=== PATIENT | male | born 1985 | race Caucasian/White ===

== ENCOUNTER 2017-08-16 10:40 | Emergency (ER) | payer SELFPAY ==
[~2017-08-16] VITALS: Ht 180.3 cm; Wt 58.6 kg
[2017-08-16] MEDS ORDERED: ALBUTEROL SULFATE 2.5 MG/3 ML NPPB ONE (11:00)
[2017-08-16] MEDS ORDERED: ALBUTEROL/IPRATROPIUM 2.5MG/0.5MG, 3 ML ONE (11:18)
[2017-08-16] MEDS ORDERED: ALBUTEROL SULFATE 2.5 MG/3 ML ONE (11:24)
[2017-08-16] MEDS ORDERED: SODIUM CHLORIDE FLUSH 10ML SYR IVF ONE (12:30)
[2017-08-16] MEDS ORDERED: CEFTRIAXONE PMX 1GM/50ML 50 ML IVPB ONE (12:30)
[2017-08-16] MEDS ORDERED: AZITHROMYCIN 500 MG in SODIUM CHLORIDE 0.9% 250 ML IVPB ONE (12:30)
[2017-08-16 12:52] LABS: BASOPHILS # (AUTO) 0.03 x10^3/uL (0-0.1); BASOPHILS % (AUTO) 1 % (0-1); EOSINOPHILS # (AUTO) 0.09 x10^3/uL (0-0.4); EOSINOPHILS % (AUTO) 2 % (1-7); LYMPHOCYTES # (AUTO) 1.84 x10^3/uL (1-3.4); LYMPHOCYTES % (AUTO) 34 % (22-44); MD NO; MEAN CORPUSCULAR HEMOGLOBIN 29.6 pg (27.5-34.5); MEAN CORPUSCULAR HGB CONC 33.1 g/dL (33.2-36.2); MEAN CORPUSCULAR VOLUME 89.4 fL (81-97); MEAN PLATELET VOLUME 9.1 fL (7.4-10.4); MONOCYTES % (AUTO) 6 % (2-9); NEUTROPHILS # (AUTO) 3.22 x10^3/uL (1.8-6.8); NEUTROPHILS % (AUTO) 59 % (42-75); PLATELET COUNT 317 x10^3/uL (130-400); RED BLOOD COUNT 4.85 x10^6/uL (4.38-5.82); RED CELL DISTRIBUTION WIDTH 12.7 % (9.4-14.8)
[2017-08-16 13:01] LABS: ALBUMIN 3.9 g/dL (3.4-5.0); ANION GAP 8 mmol/L (5-15); CALCIUM 8.7 mg/dL (8.5-10.1); CHLORIDE 107 mmol/L (98-107); CREATININE 0.96 mg/dL (0.7-1.3)
[2017-08-16] MEDS ORDERED: CEFTRIAXONE PMX 1GM/50ML 50 ML ONE (13:18)
[2017-08-16] MEDS ORDERED: OMNIPAQUE 350 MG/ML, 75ML BOTTLE ONE (13:37)
[2017-08-16 14:45] VITALS: BP 108/65
== END 2017-08-16 14:48 | disposition home or self-care (01) ==
LOC: ED 11:27
DX: J45.41 Moderate persistent asthma with (acute) exacerbation (principal); J00 Acute nasopharyngitis [common cold]; Z76.0 Encounter for issue of repeat prescription; R06.00 Dyspnea, unspecified
CPT/HCPCS: 36415; 71046; 71260; 80048; 82040; 83605; 85025; 87040; 93005; 94640; 96365; 99285; J0696; Q9967; J7613

== ENCOUNTER 2018-11-29 21:45 | Emergency (ER) | payer MEDICAID ==
[~2018-11-29] VITALS: Ht 180.3 cm; Wt 62.7 kg
--- NOTE | 2018-11-29 21:59 | NUR ---
C/O LOWER ABD PAIN RADIATING TO BILATERAL FLANKS. HX KIDNEY STONES. DX 3MM STONE AT [facility] TWO DAYS AGO. PT STATES PAIN MEDS ARE NOT WORKING TO CONTROL PAIN. CONNECTED TO MONITORING. CALL LIGHT IN REACH. FAMILY AT BEDSIDE. AWAITING ORDERS.
[2018-11-29] MEDS ORDERED: SODIUM CHLORIDE 0.9% 1,000ML IV ONE (22:30)
[2018-11-29] MEDS ORDERED: KETOROLAC 30 MG/1 ML IVPush ONE (22:30)
[2018-11-29] MEDS ORDERED: ONDANSETRON 2MG/ML, 2ML IVPush ONE (22:30)
[2018-11-29] MEDS ORDERED: MORPHINE SULFATE 4 MG/ML, 1ML IVPush PRN (22:30)
--- NOTE | 2018-11-29 22:30 | NUR ---
IV PLACED AND MEDS ADMINISTERED ORDERED.
[2018-11-29 22:42] LABS: BASOPHILS # (AUTO) 0.01 x10^3/uL (0-0.1); BASOPHILS % (AUTO) 0 % (0-1); EOSINOPHILS # (AUTO) 0.09 x10^3/uL (0-0.4); EOSINOPHILS % (AUTO) 1 % (1-7); LYMPHOCYTES # (AUTO) 1.47 x10^3/uL (1-3.4); LYMPHOCYTES % (AUTO) 19 % (22-44); MD NO; MEAN CORPUSCULAR HEMOGLOBIN 30.4 pg (27.5-34.5); MEAN CORPUSCULAR HGB CONC 33.2 g/dL (33.2-36.2); MEAN CORPUSCULAR VOLUME 91.6 fL (81-97); MEAN PLATELET VOLUME 9.3 fL (7.4-10.4); MONOCYTES # (AUTO) 0.32 x10^3/uL (0.2-0.8); MONOCYTES % (AUTO) 4 % (2-9); NEUTROPHILS # (AUTO) 6.03 x10^3/uL (1.8-6.8); NEUTROPHILS % (AUTO) 76 % (42-75); PLATELET COUNT 266 x10^3/uL (130-400); RED BLOOD COUNT 4.58 x10^6/uL (4.38-5.82)
[2018-11-29 22:49] LABS: ALBUMIN 3.6 g/dL (3.4-5.0); ANION GAP 8 mmol/L (5-15); CHLORIDE 107 mmol/L (98-107); CREATININE 1.67 mg/dL (0.7-1.3)
[2018-11-29] MEDS ORDERED: KETOROLAC 30 MG/1 ML ONE (22:52)
[2018-11-29] MEDS ORDERED: MORPHINE SULFATE 4 MG/ML, 1ML ONE (22:52)
[2018-11-29] MEDS ORDERED: ONDANSETRON 2MG/ML, 2ML ONE (22:52)
--- NOTE | 2018-11-29 23:20 | NUR ---
IV INFILTRATED. NEW IV PLACED FLUIDS RUNNING ORDERED.
[2018-11-29 23:24] LABS: MICROSCOPIC NOT IND
[2018-11-29 23:36] LABS: CULTURE INDICATED? NO
--- NOTE | 2018-11-29 23:49 | NUR ---
ALL RESULTS BACK AT THIS TIME. CHART UP FOR RECHECK.
[2018-11-30] MEDS ORDERED: SODIUM CHLORIDE 0.9% 1,000ML IVBOLUS ONE
[2018-11-30 00:25] VITALS: BP 113/72
--- NOTE | 2018-11-30 00:25 | NUR ---
IV fluids have finished, patient cleared for discharge.
== END 2018-11-30 00:29 | disposition home or self-care (01) ==
LOC: ED 22:18
DX: N20.2 Calculus of kidney with calculus of ureter (principal); R11.2 Nausea with vomiting, unspecified; E86.0 Dehydration; J45.909 Unspecified asthma, uncomplicated; Z90.89 Acquired absence of other organs
CPT/HCPCS: 36415; 80048; 81003; 82040; 85025; 96361; 96374; 96375; 99283; J1885; J2270; J2405; J7030